=== PATIENT | male | born 1995 | race African-American/Black ===

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

== ENCOUNTER 2017-03-24 22:49 | Emergency (ER) | payer BC ==
[~2017-03-24] VITALS: Ht 188 cm; Wt 90.9 kg
[~2017-03-24 22:49] MED LIST: ADVA100A INH; AUGM875T PO; IBUP800T23 PO; VENTAER INH
[2017-03-24 22:50] VITALS: BP 134/91; PULSE 69; RESP 15; TEMP 98.3; O2SAT 99
[2017-03-25] MEDS ORDERED: CIPR-9 PO (00:06)
--- NOTE | 2017-03-25 00:06 | PD ---
HPI Chief Complaint: Complaint Time Seen by Provider: 00:01 Travel History International Travel<30 days: No Contact w/Intl Traveler<30days: No Traveled to known affect area: No History of Present Illness HPI C/O BURNING WITH URINATION, NO D/C, NO N/V/D/ABD PAIN/CP/CHILDERS/RASH...HAS BEEN GOING ON FOR 2DAYS AND NOT IMPROVING ON ITS OWN [facility] Past Medical History Medical History: Denies Significant Hx Asthma: Yes Respiratory: Yes (ASTHMA) Past Surgical History Surgical History: No Previous Surgery Social History Alcohol Use: Yes (OCC) Tobacco Use: No Substance Use: No Allergies-Medications (Allergen,Severity, Reaction): Coded Allergies: No Known Allergies (Unverified , 10/18/16) Reported Meds & Prescriptions Reported Meds & Active Scripts Active Review of Systems Except as stated in HPI: all other systems reviewed are Neg Genitourinary: Positive: Urgency, Frequency, Dysuria Physical Exam Narrative GENERAL: SKIN: Warm and dry. HEAD: Atraumatic. Normocephalic. EYES: Pupils equal and round. No scleral icterus. No injection or drainage. ENT: No nasal bleeding or discharge. Mucous membranes pink and moist. NECK: Trachea midline. No JVD. CARDIOVASCULAR: Regular rate and rhythm. RESPIRATORY: No accessory muscle use. Clear to auscultation. Breath sounds equal bilaterally. GASTROINTESTINAL: Abdomen soft, non-tender, nondistended. : NO URETHRAL D/C, NO INGUINAL LAD, NO TESTICULAR TTP, NO CELLULITIC CHANGES MUSCULOSKELETAL: Extremities without clubbing, cyanosis, or edema. No obvious deformities. NEUROLOGICAL: Awake and alert. No obvious cranial nerve deficits. Motor grossly within normal limits. Five out of 5 muscle strength in the arms and legs. Normal speech. PSYCHIATRIC: Appropriate mood and affect; insight and judgment normal. Data Data Last Documented VS Vital Signs Date Time Temp Pulse Resp B/P (MAP) Pulse Ox O2 Delivery O2 Flow Rate FiO2 03/24/17 22:50 98.3 69 15 134/91 (105) 99 Room Air MDM Medical Decision Making Medical Screen Exam Complete: Yes Emergency Medical Condition: Yes Medical Record Reviewed: Yes Differential Diagnosis UTI V URETHRITIS Narrative Course PATIENT DID NOT WANT TO WAIT FOR RESULTS SO WILL COLLECT UA AND SEND FOR STUDIES BUT CLINICALLY PT HAS SYMPTOMS C/W URETHRITIS Diagnosis Primary Impression: ACUTE URETHRITIS Patient Instructions: General Instructions, Nonspecific Urethritis in Men (ED) Scripts Ciprofloxacin (Cipro) 500 Mg Tab 500 MG PO BID for Infection, #14 TAB 0 Refills Prov: William Goodwin MD 03/25/17 Disposition: 01 DISCHARGE HOME Condition: Stable William Goodwin MD Mar 25, 2017 00:06
[2017-03-25 00:52] LABS: BACTERIA, URINE RARE /hpf; BLOOD, URINE NEG (NEG); CALCIUM OXALATE CRYSTALS,URINE RARE /hpf; COMMENT (UR) CULTURE INDICATED; CULTURE IF INDICATED CULTURE INDICATED; GLUCOSE,URINE NEG (NEG); KETONE, URINE NEG (NEG); MUCUS URINE FEW /lpf (OCC); NITRITE,URINE NEG (NEG); URINE COLOR YELLOW (YELLW/STRAW)
[2017-03-25 02:37] LABS: CHLAMYDIA PCR NOT DETECTED (NOT DETECT); NEISSERIA PCR DETECTED (NOT DETECT)
== END 2017-03-25 01:29 | disposition home or self-care (01) ==
LOC: NEPD 22:49
DX: A54.01 Gonococcal cystitis and urethritis, unspecified (principal)
CPT/HCPCS: 81001; 87086; 87185; 87491; 87591; 99283